=== PATIENT | female | born 1990 | race Caucasian/White ===

== ENCOUNTER 2019-01-18 11:44 | Emergency (ER) | payer OTHER | END 2019-01-18 11:55 | disposition left against medical advice (07) | LOC: UCEAST 11:44 | DX: Z53.8 Procedure and treatment not carried out for other reasons (principal) ==

== ENCOUNTER → 2019-01-24 15:49 | Emergency (ER) | payer OTHER ==
[2019-01-24 18:06] VITALS: BP 134/82
== END | disposition left against medical advice (07) ==
LOC: ED 15:49
DX: Z53.21 Procedure and treatment not carried out due to patient leaving prior to being seen by health care provider (principal)
CPT/HCPCS: 99281

== ENCOUNTER 2019-04-20 17:12 | Inpatient (IN) | payer OTHER ==
[2019-04-20] MEDS ORDERED: Dinoprostone* 10 MG VAG.SUPP VAGINAL ONE (17:55)
--- NOTE | 2019-04-20 18:39 | PN ---
L&D Outpatient: Visit - Reproductive Information Estimated Due Date: 04/25/19 Gestational Age: 39 Weeks and 2 Days : 1 Para: 0 - Reason for Visit Visit Reason: for elective induction for BMI . Dr Swain and pt decided to proceed with elective induction - Antepartal Records Antepartal Record: Reviewed, Complicated by: - fibroids - Patient History Patient History Significant: Yes Patient History Significant For: depression and anxiety Review of Systems Constitutional: Comfortable CV Complaint: No Respiratory: Shortness of Breath: No Gastrointestinal: No Nausea/Vomiting Genitourinary: No Bleeding, No Leaking Fluid Musculoskeletal: No Complaint Neurological: No Headache Movement: Normal L&D Outpatient: Exam - Cervical Exam Cervical Exam: 2 /50% /-2 - Abdominal Exam Abdomen Exam: Non-Tender - Membranes Membrane Status: Intact - Ultrasound/Biophysical Profile Ultrasound Status: Not Done EFM Findings - External Monitor Findings Baseline Heart Rate: 110 External Monitor Findings: Accelerations Present, No Pattern of Variable or Late Decelerations, Variability Moderate Contractions: None L&D Outpatient: Asses/Plan - Discharge Diagnosis Discharge Diagnosis: Supervision-Normal Preg - high bmi at term, Other - bmi 36 Plan: Other - cervix ripening
[2019-04-20 19:20] LABS: Urine Benzodiazepine Screen None Detected (None Detect); Urine Opiates Screen None Detected (None Detect)
[2019-04-21] MEDS ORDERED: Buffered Lidocaine 1% SYRIN* 1 ML/SYRINGE INTRADERM ONE (09:45)
[2019-04-21] MEDS ORDERED: Lactated Ringers 1000 ML Bag* 1,000 ML IV ONE ×2 (09:45→17:49)
[2019-04-21] MEDS ORDERED: Oxytocin in LR* 20 UNITS/1,000 ML BAG IVPB SCH (10:00)
[2019-04-21] MEDS ORDERED: Lactated Ringers 1000 ML Bag* 1,000 ML IV SCH ×2 (10:00→18:00)
[2019-04-21 10:16] LABS: Hematocrit 35 % (35-47); Hemoglobin 12.1 g/dL (12.0-16.0); Mean Corpuscular HGB Conc 35 g/dL (31-36); Mean Corpuscular Hemoglobin 32 pg (27-31); Mean Corpuscular Volume 91 fL (80-97); Mean Platelet Volume 9.8 fL (7.4-10.4); Platelet Count 245 10^3/uL (150-450); Red Cell Distribution Width 13 % (10-15); White Blood Count 7.5 10^3/uL (3.5-10.8)
--- NOTE | 2019-04-21 12:22 | HP ---
General Information - Reason for Visit at 39 weeks, BMI 36 with ripe cervix for induction of labor. - General Information Maternal Age: 28 Grav: 1 Para: 0 SAB: 0 IEA: 0 Estimated Due Date: 04/25/19 Determined By: LMP Gestational Age in Weeks/Days: 39 3/7 Maternal Blood Type and Rh: A Positive - Results this Serology/RPR Result: Non-Reactive Rubella Result: Non-Immune HBsAg Result: Negative HIV Result: Negative GBS Culture Result: Negative Past Medical History Delivery History: See Records Pertinent Past Medical History: See Records Past Medical History Comment: Depression/Anxiety GERD Pertinent Past Surgical History: See Records Past Surgical History Comment: None Pertinent Family History: See Records - Antepartal Records Antepartal Records: Reviewed, Uncomplicated Review of Systems Constitutional: Comfortable CV Complaint: No Respiratory: Shortness of Breath: No Gastrointestinal: No Nausea/Vomiting, Normal Bowel Movement Genitourinary: No Dysuria, No Bleeding, No Leaking Fluid Musculoskeletal: No Complaint, No Epigastric Pain, Contractions - mild, infrequent Neurological: No Headache, No Visual Changes Movement: Normal Exam Allergies/Adverse Reactions: Allergies No Known Allergies Allergy (Verified 01/24/19 15:52) Temp 98.1 BP 122/78 P 99 RR 20 POx 99 % RA Lab Values - Entire Visit: Laboratory Tests 04/20/19 04/21/19 04/21/19 18:30 09:30 09:50 WBC 7.5 RBC 3.80 Hgb 12.1 Hct 35 MCV 91 MCH 32 H MCHC 35 RDW 13 Plt Count 245 MPV 9.8 Urine Opiates Screen None detected Ur Barbiturates Screen None detected Ur Phencyclidine Scrn None detected Ur Amphetamines Screen None detected U Benzodiazepines Scrn None detected Urine Cocaine Screen None detected U Cannabinoids Screen None detected Blood Type A Positive Antibody Screen Negative - Measurements Height: 5 ft 9 in Weight: 273 lb Weight in lbs: 273.143909 Body Mass Index (BMI): 40.3 Pre- Weight: 244 lb Weight Gained This : 29 lbs and 0 ozs - Exam Breast: Breast Exam Deferred CVA: No CVA Tenderness Extremities: No Edema Heart: Normal Rhythm/Heart Sounds HEENT: No Significant Findings Lungs: Clear Bilaterally Rectal: Rectal Exam Deferred Reflexes: DTR 2+ Thyroid: No Thyromegaly - Abdominal Exam Abdomen Exam: Non-Tender, Fundal Height Consistent with Dates Targeted Exam Findings See L&D Outpatient Visit Provider Note for Findings: N/A Cervical Exam: 3cm Effacement: 70% Station: -1 Presenting Part: Vertex Membrane Status: AROM - Clear Bleeding/Discharge: None EFM Findings - External Monitor Findings Baseline Heart Rate: 130 External Monitor Findings: Accelerations Present Contractions: Irregular, Mild, < 45 Seconds Assessment/Plan - Assessment Term , Obesity, ripe cervix. - Obstetrical Risk Factors Obstetrical Risk Factors: Obesity - Plan Plan: Induction, IV Hydration, Admit - Anticipate Vaginal Delivery - Date/Time of Admission Date of Admission: 04/21/19 Time of Admission: 11:00
[2019-04-21] MEDS ORDERED: Nalbuphine* 10 MG/ML 1 ML VIAL ONE (12:50)
[2019-04-21] MEDS ORDERED: Promethazine INJ(RESTRICTED)* 25 MG/ML 1 ML VIAL ONE (12:50)
[2019-04-21] MEDS ORDERED: Promethazine INJ(RESTRICTED)* 25 MG/ML 1 ML VIAL IV ONE (12:55)
[2019-04-21] MEDS ORDERED: Nalbuphine* 10 MG/ML 1 ML VIAL IV ONE (12:55)
[2019-04-21 15:25] LABS: Urine Appearance Clear; Urine Bilirubin Negative (Negative); Urine Blood Negative (Negative); Urine Color Yellow; Urine Glucose Negative (Negative); Urine Ketones Negative (Negative); Urine Nitrite Negative (Negative); Urine Protein Negative (Negative); Urine Specific Gravity 1.025 (1.010-1.030); Urine Urobilinogen Negative (Negative)
[2019-04-21] MEDS ORDERED: OBEPIDURAL* 250 ML EPIDURAL ONE (16:35)
[2019-04-21] MEDS ORDERED: Lactated Ringers 1000 ML Bag* 500 ML IV PRN ×2 (17:49)
[2019-04-21] MEDS ORDERED: Famotidine TAB* 20 MG PO PRN (17:49)
[2019-04-21] MEDS ORDERED: EPHEDrine (Pressors)* 50 MG/ML VIAL IV PUSH PRN ×2 (17:49)
[2019-04-21] MEDS ORDERED: Sodium Citrate/Citric Acid* 15 ML UDC PO PRN (17:49)
[2019-04-21] MEDS ORDERED: Phenylephrine 40 MCG/ML SYRINGE IV PUSH PRN ×2 (17:49)
[2019-04-21] MEDS ORDERED: OBEPIDURAL* 250 ML EPIDURAL SCH (18:00)
[2019-04-21 21:15] LABS: Urine Benzodiazepine Screen None Detected (None Detect); Urine Opiates Screen None Detected (None Detect)
[2019-04-21 22:28] LABS: Albumin 3.3 g/dL (3.2-5.2); Calcium 8.6 mg/dL (8.6-10.3); Potassium 4.7 mmol/L (3.5-5.0); Total Bilirubin 0.5 mg/dL (0.2-1.0)
[2019-04-21 22:33] LABS: Albumin/Globulin Ratio 1.2 (1-3); BUN/Creatinine Ratio 16.9 (8-20); EGFR African American 144.8 (>60); EGFR Non-African American 119.7 (>60); Globulin 2.7 g/dL (2-4)
[2019-04-22] MEDS ORDERED: Chloroprocaine 3%* 20 ML VIAL ONE (01:33)
[2019-04-22] MEDS ORDERED: fentaNYL* 50 MCG/ML 2 ML VIAL (100 MCG VIAL) ONE ×2 (01:33→02:29)
[2019-04-22] MEDS ORDERED: Phenylephrine 40 MCG/ML SYRINGE ONE (01:33)
[2019-04-22] MEDS ORDERED: OXYTOCIN* 10 UNITS/ML 1 ML VIAL ONE (01:33)
[2019-04-22] MEDS ORDERED: Morphine PF AMP (0.5MG/ML)* 5 MG/10 ML AMP ONE (01:34)
[2019-04-22] MEDS ORDERED: Lidocaine 2% PF* 10 ML AMP ONE (01:35)
[2019-04-22] MEDS ORDERED: Sodium Bicarbonate 8.4% VIAL* 10 ML VIAL IV ONE (01:42)
[2019-04-22] MEDS ORDERED: Naloxone* 0.4 MG/ML 1 ML VIAL IV PRN ×2 (01:46→01:48)
[2019-04-22] MEDS ORDERED: Scopolamine 1.5 mg* PATCH TRANSDERM PRN ×2 (01:46→01:55)
[2019-04-22] MEDS ORDERED: Ondansetron INJ* 2 MG/ML VIAL IV PRN ×2 (01:46→01:55)
[2019-04-22] MEDS ORDERED: ceFOXitin 2 GM IVPREMIX* 2 GM/50 ML BAG IVPB ONE (01:50)
[2019-04-22] MEDS ORDERED: Nalbuphine* 10 MG/ML 1 ML VIAL IV PRN (01:55)
[2019-04-22] MEDS ORDERED: Ketorolac INJ* 30 MG/ML 1 ML VIAL IV PRN (01:55)
[2019-04-22] MEDS ORDERED: diPHENhydraMINE IV* 50 MG/ML 1 ml VIAL (BENADRYL) IV PRN (01:55)
[2019-04-22] MEDS ORDERED: oxyCODONE/Acetamin 5/325 MG* TAB PO PRN ×2 (01:55→18:36)
[2019-04-22] MEDS ORDERED: Witch Hazel PAD* JAR TOPICAL PRN (03:20)
[2019-04-22] MEDS ORDERED: Dibucaine 1% 28.35 GM TUBE PR PRN (03:20)
[2019-04-22] MEDS ORDERED: Glycerin ADULT SUPP PR PRN (03:20)
[2019-04-22] MEDS ORDERED: Acetaminophen TAB* 325 MG PO PRN (03:20)
[2019-04-22] MEDS: fentaNYL* 50 MCG/ML 2 ML VIAL (100 MCG VIAL) IV PRN ×2 (03:58→04:14)
[2019-04-22] MEDS ORDERED: Lactated Ringers 1000 ML Bag* 1,000 ML IV SCH (04:00)
[2019-04-22] MEDS: Simethicone TAB* 80 MG TAB.CHEW PO SCH ×4 (09:25→21:29)
[2019-04-22] MEDS: Docusate CAP* 100 MG PO SCH ×3 (09:25→21:28)
[2019-04-22] MEDS: oxyCODONE/Acetamin 5/325 MG* TAB PO PRN ×4 (09:49→21:28)
--- NOTE | 2019-04-22 15:57 | PN ---
Progress Note - Progress Note Date of Service: 04/22/19 Note: [SUBJECTIVE Pt doing well this AM. POD#0 s/p pLTCS for failed IOL/arrest of dilation. Pain control adequate. Tolerating regular diet. Boyle in place, adequate UOP. Denies fever, chills, n/v/d, cp, sob. ] Objective: [AVSS, afebrile, hemodynamically stable Gen: nad, aaox3 CV: RRR Pulm: CTABL Abd: soft, nd, nttp, no rebound, no guarding, fundus firm below the Umbilicus Incision: bandage in place, minimal shadowing Ext: warm, nttp, neg tabitha's, SCD's on and inflating : boyle in and draining adequate urine] Assessment/Plan: 28 y/o POD#0 s/p pLTCS for failed IOL/arrest of dilation, doing well post- operatively: - AVSS, afebrile, hemodynamically stable - post op H/H pending for 04/23 AM - Doing well post operatively - Boyle in place, adequate UOP - Tolerating regular diet - Pain well controlled - Incision with bandage in place, minimal shadowing, OK to remove bandage in shower - Continue routine post-operative care Caio Cerda, OBGYN
[2019-04-22] MEDS: Ibuprofen TAB* 600 MG PO SCH (17:08)
[2019-04-22] MEDS ORDERED: Zolpidem TAB* 5 MG PO PRN (18:36)
[2019-04-23] MEDS: Ibuprofen TAB* 600 MG PO SCH ×3 (02:44→17:48)
[2019-04-23 06:51] LABS: ABS Lymphocytes 1.5 10^3/ul (1.0-4.8); ABS Monocytes 0.7 10^3/ul (0-0.8); ABS Neutrophils 7.9 10^3/ul (1.5-7.7); Eosinophil % 0.1 %; Hematocrit 29 % (35-47); Hemoglobin 10.2 g/dL (12.0-16.0); Lymphocyte % 14.8 %; Mean Corpuscular HGB Conc 35 g/dL (31-36); Mean Corpuscular Hemoglobin 32 pg (27-31); Mean Corpuscular Volume 92 fL (80-97); Nucleated Red Blood Cells % 0.1; Platelet Count 184 10^3/uL (150-450); Red Blood Count 3.17 10^6 /uL (3.70-4.87); Red Cell Distribution Width 13 % (10-15); White Blood Count 10.2 10^3/uL (3.5-10.8)
[2019-04-23] MEDS: Ferrous Gluconate TAB* 324 MG TAB PO SCH ×2 (07:50→20:08)
[2019-04-23] MEDS: Simethicone TAB* 80 MG TAB.CHEW PO SCH ×3 (07:50→17:47)
[2019-04-23] MEDS: Docusate CAP* 100 MG PO SCH ×3 (07:50→20:08)
--- NOTE | 2019-04-23 11:28 | PN ---
Progress Note - Progress Note Date of Service: 04/23/19 Note: SUBJECTIVE Pt doing well this AM. POD#1 s/p pLTCS for failed IOL/arrest of dilation. Pain control adequate. Tolerating regular diet. Voiding spontaneously. Denies fever, chills, n/v/d, cp , sob. ] Objective: AVSS, afebrile, hemodynamically stable Gen: nad, aaox3 CV: RRR Pulm: CTABL Abd: soft, nd, nttp, no rebound, no guarding, fundus firm below the Umbilicus Incision: c/d/i with nicky Ext: warm, nttp, neg tabitha's, trace edema : voiding spontaneously Assessment/Plan: 28 y/o POD#1 s/p pLTCS for failed IOL/arrest of dilation, doing well post- operatively: - AVSS, afebrile, hemodynamically stable - H/H ., asymptomatic, on PO FE - Mild range BP's noted, suspect related to pain control, as were taken prior to being given meds. Pt asymptomatic. Continue to monitor. - Voiding spontaneously - Tolerating regular diet - Pain appropriately controlled - Incision is c/d/i with nicky - Continue routine post-operative care DO MACK Saunders
[2019-04-23] MEDS: oxyCODONE/Acetamin 5/325 MG* TAB PO PRN ×2 (13:33→17:47)
--- NOTE | 2019-04-23 22:52 | OP ---
CC: Hoang Cerda DO * DATE OF OPERATION: 04/22/19 - ROOM #116 DATE OF : 86 SURGEON: Maurilio Swain MD HR ANALYST: Hoang Cerda DO ANESTHESIA: Epidural. PRE-OP DIAGNOSIS: at 39 weeks with arrest of dilation. POST-OP DIAGNOSIS: at 39 weeks with arrest of dilation. OPERATIVE PROCEDURE: Primary low transverse section. ESTIMATED BLOOD LOSS: 500 cc. FLUIDS: She received 1800 cc of IV crystalloid fluid. URINE OUTPUT: Clear. FINDINGS: Delivery of a male infant with weight of 7 pounds 7 ounces, Apgars of 9 and 9. The uterus was within normal limits. Adnexa, bowel, and bladder were normal, and the placenta was within normal limits as well. DESCRIPTION OF PROCEDURE: The patient was taken to the operating room where she was identified. She was placed on the operating table where an epidural anesthetic was obtained without difficulty. She was then placed in the supine position with a leftward tilt, prepped and draped in normal sterile fashion. A Pfannenstiel skin incision was then made with a knife and carried through to underlying layer of fascia. The fascia was then nicked in the midline and extended laterally with curved Kelley scissors. Dissection was then extended laterally with bandage scissors, it was then grasped superiorly and inferiorly with Milan clamps and dissected off sharply from the rectus muscle. The rectus muscle was in the midline bluntly. The peritoneum was identified, grasped with pickups, entered sharply with Metzenbaum scissors and extended superiorly and inferiorly sharply. A bladder blade was inserted into the patient's abdomen. A bladder flap was created using Metzenbaum scissors, over which the bladder blade was then reinserted. A low transverse uterine incision was made with a knife and extended laterally with curved Kelley scissors. The 's head was then grasped and vacuum assistance was used to deliver the baby's head. The rest of the 's body was then delivered. The cord was clamped and cut. The was handed off to awaiting pill coater. Cord bloods were obtained. The placenta was removed manually. The uterus was then exteriorized, cleared of all clot and debris using moist laparotomy sponges. The uterine incision was then closed using 0 Polysorb suture in a running locked fashion with a second imbricating layer of 0 Polysorb suture with good hemostasis noted. The uterus was then returned to the patient's abdomen. The gutters were then cleared of all clot and debris using moist laparotomy sponges. All the sponges were then removed from the patient's abdomen as well as the instruments. The peritoneum was then closed using 2-0 Polysorb suture in a running fashion. The fascia was closed using 0 Polysorb suture in a running fashion, Marisel's fascia was closed using 3-0 Polysorb sutures in interrupted fashion, and the skin was closed with nicky. The patient tolerated the procedure well. Sponge, lap, and needle counts were correct x2. She was then transferred to the recovery room area in stable condition. [id number]/CPS #: [id number] JUANY
[2019-04-24] MEDS: Ibuprofen TAB* 600 MG PO SCH ×4 (07:26→22:59)
[2019-04-24] MEDS: Simethicone TAB* 80 MG TAB.CHEW PO SCH ×5 (07:28→20:27)
[2019-04-24] MEDS: Ferrous Gluconate TAB* 324 MG TAB PO SCH ×2 (07:42→20:27)
[2019-04-24] MEDS: Docusate CAP* 100 MG PO SCH ×3 (07:42→20:27)
[2019-04-24] MEDS ORDERED: Measles, Mumps,Rubella VACC* 0.5 ML/VIAL SUBCUT ONE (09:31)
[2019-04-24] MEDS ORDERED: Influenza VAC *QUAD* 2019-20* 0.5 ML SYRINGE IM ONE (10:00)
[2019-04-24] MEDS: oxyCODONE/Acetamin 5/325 MG* TAB PO PRN (20:27)
[2019-04-25] MEDS ORDERED: Scopolamine PATCH Remove* 1 NOTE MISC PATCH OFF ONE (01:48)
[2019-04-25] MEDS ORDERED: Scopolamine PATCH Remove* 1 NOTE MISC PATCH OFF PRN (02:43)
[2019-04-25] MEDS: Ferrous Gluconate TAB* 324 MG TAB PO SCH ×2 (07:50→20:34)
[2019-04-25] MEDS: Docusate CAP* 100 MG PO SCH ×3 (07:50→20:35)
[2019-04-25] MEDS: Ibuprofen TAB* 600 MG PO SCH ×3 (07:50→21:43)
[2019-04-25] MEDS: Simethicone TAB* 80 MG TAB.CHEW PO SCH ×4 (07:50→20:35)
[2019-04-25] MEDS: Labetalol TAB* 100 MG PO SCH ×2 (10:12→20:35)
[2019-04-25 10:45] LABS: ABS Basophils 0.1 10^3/ul (0-0.2); ABS Eosinophils 0.2 10^3/ul (0-0.6); ABS Lymphocytes 1.1 10^3/ul (1.0-4.8); ABS Monocytes 0.5 10^3/ul (0-0.8); ABS Neutrophils 4.5 10^3/ul (1.5-7.7); Eosinophil % 2.7 %; Hematocrit 31 % (35-47); Hemoglobin 10.6 g/dL (12.0-16.0); Mean Corpuscular HGB Conc 35 g/dL (31-36); Mean Corpuscular Hemoglobin 32 pg (27-31); Mean Corpuscular Volume 91 fL (80-97); Mean Platelet Volume 8.1 fL (7.4-10.4); Nucleated Red Blood Cells % 0.1; Platelet Count 269 10^3/uL (150-450); Red Blood Count 3.37 10^6 /uL (3.70-4.87); Red Cell Distribution Width 13 % (10-15); White Blood Count 6.4 10^3/uL (3.5-10.8)
[2019-04-25 11:00] LABS: BUN/Creatinine Ratio 18.5 (8-20); Calcium 8.6 mg/dL (8.6-10.3); EGFR African American 129.5 (>60); Potassium 3.6 mmol/L (3.5-5.0); Total Bilirubin 0.3 mg/dL (0.2-1.0)
[2019-04-26] MEDS: Ibuprofen TAB* 600 MG PO SCH (06:24)
[2019-04-26 08:54] VITALS: BP 158/87
[2019-04-26] MEDS: Ferrous Gluconate TAB* 324 MG TAB PO SCH (09:00)
[2019-04-26] MEDS: Simethicone TAB* 80 MG TAB.CHEW PO SCH ×2 (09:05→12:19)
[2019-04-26] MEDS: Docusate CAP* 100 MG PO SCH (09:05)
[2019-04-26] MEDS: Labetalol TAB* 100 MG PO SCH (09:05)
--- NOTE | 2019-04-26 12:20 | DCNOTE ---
DISCHARGE NOTE S: Pt is a POD#4 s/p pLTCS for arrest of dilation. Post operative course complicated by mild range elevated blood pressures, started on Labetalol 100mg BID. Pt is asymptomatic, she denies JC, changes in vision, RUQ pain, n/v, cp, sob. She denies vaginal bleeding. Pain has been well controlled with OTC PO pain medications. She is tolerating regular diet, ambulating, voiding spontaneously, + flatus. 0: BP 144/76, AVSS, afebrile, hemodynamically stable Gen: NAD, AAOX3 CV: RRR Pulm: non-labored respirations, CTABL Abd: soft, nd, nttp, no rebound, no guarding, fundus is firm below the Umbilicus Incision: clean/dry/intact with nicky, no erythema, induration or ecchymosis Ext: warm, nttp, negative homans, trace edema, 2+ reflexes in BLUE, negative clonus A/P: 28 y/o POD#4 s/p pLTCS for arrest of dilation - AVSS, afebrile, hemodynamically stable - Elevated BP's - pt is asymptomatic. Started on Labetalol 100mg with good effect. On review of prenatals pt appears to have CHTN, though she denies ever being formally diagnosed prior to . She has not had any severe range blood pressures. Will continue Labetalol 100mg on discharge, pt will follow up in office on Wednesday for BP check. Pre-Eclampsia precautions reviewed. - Incision is C/D/I with nicky. Follow up on Wednesday in office for staple removal, Office notified that patient will need an appointment. - RH+ - Rubella Equivocal - received MMR post - Stable for discharge home in good condition, prognosis excellent DO MACK Saunders
== END 2019-04-26 13:09 | disposition home or self-care (01) | DRG 540 ==
LOC: MCHOBOUT 17:12 → MCHOB 04-21 08:19
PROVIDERS: ADMIT Obstetrics & Gynecology; ATTEND Obstetrics & Gynecology
PROC: 4A1HXCZ Monitoring of Products of Conception, Cardiac Rate, External Approach (ICD-10-PCS; 2019-04-21)
PROC: 3E0P7VZ Introduction of Hormone into Female Reproductive, Via Natural or Artificial Opening (ICD-10-PCS; 2019-04-21)
PROC: 3E033VJ Introduction of Other Hormone into Peripheral Vein, Percutaneous Approach (ICD-10-PCS; 2019-04-21)
PROC: 10907ZC Drainage of Amniotic Fluid, Therapeutic from Products of Conception, Via Natural or Artificial Opening (ICD-10-PCS; 2019-04-21)
PROC: 10D00Z1 Extraction of Products of Conception, Low, Open Approach (ICD-10-PCS; principal; 2019-04-22 02:00)
DX: O99.214 Obesity complicating childbirth (principal); O34.13 Maternal care for benign tumor of corpus uteri, third trimester; D25.9 Leiomyoma of uterus, unspecified; Z3A.39 39 weeks gestation of pregnancy; O62.1 Secondary uterine inertia; O16.4 Unspecified maternal hypertension, complicating childbirth; O61.0 Failed medical induction of labor; Z37.0 Single live birth; Z23 Encounter for immunization
CPT/HCPCS: 36415; 59200; 80053; 80307; 81003; 85025; 85027; 86850; 86900; 86901; 90686; 90707; A9270-GY; J0694; J1885; J2001; J2300; J2400; J2550; J2590; J3010

== ENCOUNTER 2020-02-22 06:10 | Inpatient (IN) ==
[2020-02-22] MEDS ORDERED: ceFOXitin 2 GM IVPREMIX 2 GM/50 ML BAG ONE (06:21)
[2020-02-22] MEDS ORDERED: Sodium Citrate/Citric Acid LIQ 15 ML UDC ONE (06:21)
[2020-02-22] MEDS ORDERED: ceFOXitin 2 GM IVPREMIX 2 GM/50 ML BAG IVPB ONE (07:00)
[2020-02-22] MEDS ORDERED: Naloxone 4 mg VIAL (10 ml) 2 MG in NS 0.9% 250 ml 250 ML IV PRN (07:28)
[2020-02-22] MEDS ORDERED: Ondansetron 4 mg VIAL 2 MG/ML 2 ml VIAL IV PRN (07:28)
[2020-02-22] MEDS ORDERED: HYDROcodone/ACETAMIN 5/325 mg TAB PO PRN (07:28)
[2020-02-22] MEDS ORDERED: Naloxone 0.4 mg VIAL 0.4 mg/ml 1 ml VIAL IV PRN ×2 (07:28→07:30)
[2020-02-22] MEDS ORDERED: Metoclopramide 5 MG/ML VIAL (10 mg) IV PRN (07:30)
[2020-02-22] MEDS ORDERED: fentaNYL 100 mcg/2 ml 50 MCG/ML VIAL IV PRN (07:30)
[2020-02-22] MEDS ORDERED: Lactated Ringers 1000 ml BAG 1,000 ML IV ONE (07:33)
[2020-02-22] MEDS ORDERED: Phenylephrine 40 mcg/mL 10mL (400mcg) SYRINGE ONE (07:39)
[2020-02-22] MEDS ORDERED: fentaNYL 100 mcg/2 ml 50 MCG/ML VIAL ONE (07:40)
[2020-02-22] MEDS ORDERED: Morphine PF AMP (0.5MG/ML) 5 MG/10 ML AMP ONE (07:40)
[2020-02-22] MEDS ORDERED: Ondansetron 4 mg VIAL 2 MG/ML 2 ml VIAL ONE (07:48)
[2020-02-22] MEDS ORDERED: Lactated Ringers 1000 ml BAG 1,000 ML IV SCH ×2 (08:00→17:00)
[2020-02-22] MEDS ORDERED: Oxytocin 10 UNITS/ML 1 ML VIAL ONE ×2 (08:19→08:30)
[2020-02-22] MEDS ORDERED: Oxytocin in LR 20 UNITS/1,000 ML BAG IVPB ONE (09:12)
[2020-02-22 10:59] LABS: Urine Benzodiazepine Screen None Detected (None Detect); Urine Cannabinoids Screen None Detected (None Detect); Urine Opiates Screen None Detected (None Detect)
[2020-02-22] MEDS ORDERED: Glycerin ADULT 2.4 gm SUPP PR PRN (16:36)
[2020-02-22] MEDS ORDERED: Witch Hazel PAD JAR TOPICAL PRN (16:36)
[2020-02-22] MEDS ORDERED: Dibucaine 1% OINT 28.35 GM TUBE PR PRN (16:36)
[2020-02-23 07:08] LABS: ABS Eosinophils 0.1 10^3/ul (0-0.6); ABS Lymphocytes 1.7 10^3/ul (1.0-4.8); ABS Monocytes 0.5 10^3/ul (0-0.8); ABS Neutrophils 4.7 10^3/ul (1.5-7.7); Eosinophil % 0.7 %; Hematocrit 29 % (35-47); Hemoglobin 10.4 g/dL (12.0-16.0); Mean Corpuscular HGB Conc 37 g/dL (31-36); Mean Corpuscular Hemoglobin 32 pg (27-31); Mean Corpuscular Volume 87 fL (80-97); Platelet Count 190 10^3/uL (150-450); Red Blood Count 3.29 10^6 /uL (3.70-4.87); Red Cell Distribution Width 14 % (10-15)
[2020-02-25 08:03] VITALS: BP 146/82
== END 2020-02-25 11:00 | disposition home or self-care (01) | DRG 540 ==
LOC: MCHOB 06:10
PROVIDERS: ADMIT Obstetrics & Gynecology; ATTEND Obstetrics & Gynecology